=== PATIENT | male | born 1975 | race Two or more races ===

== ENCOUNTER 2016-08-17 16:50 | Emergency (ER) | payer OTHER, MEDICAID ==
[2016-08-17 17:13] VITALS: TEMP 98.2; O2SAT 95
--- NOTE | 2016-08-17 17:35 | EDPHY ---
H & P Time Seen by Provider: 08/17/16 17:01 HPI/ROS: this patient complains of urticaria and hyperglycemia. He explains that 10 days ago after eating a christian he developed urticaria on his arms and upper chest. He can't think of any other potential allergens. He did not have any GI symptoms at the time but he has had persistent urticaria that responds to oral steroids that were prescribed at his primary care physician's office. He was prescribed 3 prednisone tabs 10 mg each to take daily but misunderstood the instructions only been taking 10 mg. however, his blood sugar has been increasing and he has been having to use more insulin and insulin pump to compensate. He came in today because the highest blood sugar occurred this morning -388. by using more insulin he got down to 130. He explains that he feels poorly when his blood sugar goes above 250 or so and sites generalized headache of moderate intensity and polyuria as the prime symptoms. With his current blood sugar of 130 his headache has resolved. He did take a prednisone dose at 4:00 p.m. today. He saw his primary care physician again yesterday and was per after scribed Atarax and Decadron. He picked up scripts but has not taken the Decadron. ROS: Constitutional: No fevers. No other constitutional symptoms HEENT: He denies any coryza or seasonal allergies. No facial swelling. No change in his voice. Pulmonary: No wheezing. No shortness of breath. Cardiovascular: No lightheadedness. No angioedema. GI: No nausea vomiting or diarrhea. Integumentary: He reports still having some mild urticaria in the morning. 7 point ROS is otherwise negative. Smoking Status: Former smoker Physical Exam: Physical Exam Vital signs are normal. General: No acute distress HEENT: Nose: Clear e bilaterally. No sinus tenderness to percussion. Oropharynx: No erythema or exudates. No dysphonia. No drooling or stridor. No angioedema Eyes: Pupils equal and react to light. Extraocular motions are intact. Neck: Supple with no meningismus. No lymphadenopathy Lungs: Clear to auscultation bilaterally with no rales, rhonchi or wheeze. No respiratory distress. Cardiac: Regular rate and rhythm with no murmur gallop or rub Skin: No rash or pallor. Neuro: Alert with no focal deficits noted. initial differential diagnosis: steroid induced Hyperglycemia without DKA, pruritus, urticaria, allergic reaction -environmental versus medication versus other without evidence of anaphylaxis Constitutional: Initial Vital Signs Temperature (C) 36.8 C 08/17/16 17:05 Heart Rate 115 H 08/17/16 17:05 Respiratory Rate 18 08/17/16 17:05 Blood Pressure 139/81 H 08/17/16 17:05 O2 Sat (%) 95 08/17/16 17:05 O2 Delivery Mode Room Air Allergies/Adverse Reactions: No Known Allergies Allergy (Verified 08/17/16 17:12) Home Medications: Medication Instructions Recorded Folic Acid 08/17/16 Insulin Pump Cartridge 08/17/16 Keppra 08/17/16 Lexapro 08/17/16 Meloxicam 08/17/16 Methotrexate 08/17/16 Vitamin D2 08/17/16 busPIRone 08/17/16 traMADol [Ultram 50 mg (*)] 50 - 100 mg PO Q4 PRN #8 tab 08/17/16 MDM/Departure - MDM Diagnostics: Urinalysis reveals glucosuria without ketones. ED Course/Re-evaluation: our tech called the pharmacy to confirm the patient's prescriptions. Discussion: This patient has no active urticaria at this time. I counseled him to stop oral steroids given lack of significant findings for significant allergic reaction. He feels a prescription for Atarax but has not started that yet. I encouraged him to take Atarax and ranitidine. I think that his hyperglycemia is result of the steroids should resolve see stops sores. No evidence of DKA or other complicating factors tonight. Also no evidence of anaphylaxis - Depart Disposition: Home, Routine, Self-Care Clinical Impression: Hyperglycemia without ketosis, Itching Condition: Good Instructions: Urticaria (ED), Diabetic Hyperglycemia (ED) Additional Instructions: Diagnoses: 1. Hyperglycemia without ketosis 2. Urticaria Plan: Stop taking oral steroids. Do not take the dexamethasone that was prescribed. I advise instead that you take the Atarax for itching as needed 50-100 mg every 6 hours while wake and Pepcid -40 mg a day. your hyperglycemia should resolve as you stop taking the steroids. Tylenol and tramadol if needed for headache from hyperglycemia tonight. Return for any significant worsening despite treatment plan follow up with Dr. James -silo tender for any ongoing symptoms despite the treatment plan Prescriptions: traMADol [Ultram 50 mg (*)] 50 - 100 mg PO Q4 PRN #8 tab PRN Reason: breakthrough pain Referrals: NONE *PRIMARY CARE P,. [Primary Care Provider] - As per Instructions Leonel JAMES [Medical Doctor] - As per Instructions
[2016-08-17 17:41] LABS: COLOR YELLOW; LEUKOCYTE ESTERASE,URINE NEGATIVE (NEGATIVE); NITRITE,URINE NEGATIVE (NEGATIVE); PH,URINE 6.5 (5.0-7.5)
[2016-08-17 18:08] VITALS: BP 134/86; PULSE 107; RESP 20
[2016-08-17 18:10] LABS: RBC,URINE OCCASIONAL /hpf (0-3); WBC,URINE OCCASIONAL /hpf (0-3)
[2016-08-17 18:11] LABS: HYALINE CASTS 0-1 /lpf (0-1); MUCUS 2+ /lpf (NONE-1+); YEAST OCCASIONAL /hpf (NONE SEEN)
== END 2016-08-17 18:00 | disposition home or self-care (01) ==
LOC: CED 16:50
DX: R73.9 Hyperglycemia, unspecified (principal); L29.9 Pruritus, unspecified; Z79.4 Long term (current) use of insulin; Z87.891 Personal history of nicotine dependence
CPT/HCPCS: 81003-PO; 81015-PO